=== PATIENT | male | born 1995 | race Caucasian/White ===

== ENCOUNTER 2022-10-25 23:28 | Emergency (ER) | payer MEDICAID ==
[~2022-10-25] VITALS: Ht 175.3 cm; Wt 74.3 kg
[2022-10-25 23:59] VITALS: BP 134/74
== END 2022-10-26 02:31 | disposition left against medical advice (07) ==
LOC: ER 23:28
DX: Z53.21 Procedure and treatment not carried out due to patient leaving prior to being seen by health care provider (principal)
CPT/HCPCS: 73110; 73562; 99281

== ENCOUNTER 2025-02-19 13:45 | Inpatient (IN) | payer OTHER, MEDICAID ==
[~2025-02-19] VITALS: Ht 165.1 cm; Wt 73.0 kg
[2025-02-19 13:48] VITALS: O2SAT 98
[2025-02-19] MEDS: LIDOCAINE HCL/EPINEPHRINE 1%-EPI 1:100,000 20ML VIAL INFIL ONE (14:38)
[2025-02-19] MEDS ORDERED: CEFAZOLIN SODIUM 2000MG/VIAL IJ ONE (15:00)
[2025-02-19 16:28] LABS: BASOPHILS % 0.6 % (0.0-2.0); EOSINOPHILS % 0.5 % (0.0-5.0); HEMATOCRIT. 42.5 % (42.0-52.0); HEMOGLOBIN. 14.6 g/dL (14.0-18.0); LYMPHOCYTES % 21.3 % (20.0-50.0); MEAN PLATELET VOLUME 7.4 fl (7.4-10.4); MONOCYTES % 6.6 % (2.0-8.0); NEUTROPHILS % 71.0 % (40.0-76.0); PLATELET 320 x1000/uL (130-400); RED BLOOD CELL COUNT 4.76 mill/uL (4.7-6.1); RED CELL DISTRIBUTION WIDTH 13.7 % (11.6-14.6)
[2025-02-19] MEDS: TETANUS, DIPHTHERIA, PERTUSSIS VAC/PF 0.5ML (>10YR OLD) IM ONE (16:34)
[2025-02-19 16:42] LABS: CREATININE 1.2 mg/dL (0.6-1.3); UREA NITROGEN BLOOD 12 mg/dL (9-23)
[2025-02-19 16:45] LABS: INR 1.0
[2025-02-19 20:00] VITALS: BP 112/82; PULSE 70; RESP 17; TEMP 36.8; O2SAT 98
[2025-02-19] MEDS ORDERED: NALOXONE HCL 0.4MG/ML VIAL IV PRN (22:00)
[2025-02-19] MEDS: MORPHINE SULFATE 2 MG/ML INJ (NOT FOR IM USE) IV PRN (22:09)
[2025-02-19] MEDS: DEXT 5%/0.45% NACL 1000ML 1,000 ML IV SCH (22:13)
[2025-02-19] MEDS: CEFAZOLIN 1000MG PREMIX 50 ML IV SCH (22:35)
[2025-02-19] MEDS: MORPHINE SULFATE 2 MG/ML INJ (NOT FOR IM USE) IV NR (23:05)
[2025-02-20] VITALS: BP 119/79; PULSE 83; RESP 20; TEMP 36.4; O2SAT 100
[2025-02-20 03:54] VITALS: BP 112/82; PULSE 70; RESP 17; TEMP 36.8072
[2025-02-20 04:00] VITALS: BP 119/74; PULSE 71; RESP 17; TEMP 36.9; O2SAT 99
[2025-02-20 08:00] VITALS: BP 131/92; PULSE 63; RESP 20; TEMP 36.4; O2SAT 100
[2025-02-20] MEDS ORDERED: POLYMYXIN B SULFATE 500000 UNITS/VIAL ONE ×3 (10:14→11:22)
[2025-02-20] MEDS ORDERED: LIDOCAINE HCL/EPINEPHRINE 1%-EPI 1:100,000 20ML VIAL ONE (10:14)
[2025-02-20] MEDS ORDERED: EPINEPHRINE 1:1000 1 MG/ML AMP ONE (10:14)
[2025-02-20] MEDS ORDERED: VANCOMYCIN HCL 1GM VIAL ONE (10:30)
[2025-02-20] MEDS ORDERED: ACETAMINOPHEN 1000MG/100ML 100 ML IV ONE (10:50)
[2025-02-20] MEDS ORDERED: FAMOTIDINE 20MG/2ML VIAL IV ONE (10:50)
[2025-02-20] MEDS ORDERED: PROPOFOL 200MG/20ML VIAL IV ONE (10:51)
[2025-02-20] MEDS ORDERED: FENTANYL CITRATE/PF 50MCG/ML 2ML VIAL ONE (10:52)
[2025-02-20] MEDS ORDERED: MIDAZOLAM HCL 2 MG/2 ML VIAL ONE (10:52)
[2025-02-20] MEDS ORDERED: HYDROMORPHONE HCL/PF 1MG/ML INJ ONE (11:25)
[2025-02-20] MEDS ORDERED: NEOSTIGMINE METHYLSULFATE 1MG/ML 10 ML VIAL ONE (11:26)
[2025-02-20] MEDS ORDERED: GLYCOPYRROLATE 0.2 MG/ML 2ML VIAL ONE ×2 (11:27)
[2025-02-20] MEDS ORDERED: LABETALOL 5MG/ML 4ML INJ IV PRN (12:00)
[2025-02-20] MEDS ORDERED: ONDANSETRON HCL 4MG/2ML INJ IV PRN (12:00)
[2025-02-20] MEDS ORDERED: HYDRALAZINE 20MG/ML VIAL IV PRN ×2 (12:00)
[2025-02-20] MEDS ORDERED: HYDROMORPHONE HCL/PF 1MG/ML INJ IV PRN (12:00)
[2025-02-20 16:00] VITALS: BP 103/70; PULSE 71; RESP 18; TEMP 36.6; O2SAT 98
[2025-02-20 20:00] VITALS: BP 113/71; PULSE 61; RESP 18; TEMP 36.4; O2SAT 100
[2025-02-20] MEDS: HYDROCODONE/ACETAMINOPHEN 5/325MG TABLET PO PRN (22:40)
[2025-02-21] VITALS: BP 100/58; PULSE 61; RESP 19; TEMP 36.3; O2SAT 99
[2025-02-21 01:10] LABS: *AMPHETAMINES SCREEN URINE PRESUMPTIVE POSITIVE (NEGATIVE); *BARBITURATES SCREEN URINE NEGATIVE (NEGATIVE); *BENZODIAZEPINES SCREEN URINE PRESUMPTIVE POSITIVE (NEGATIVE); *COCAINE SCREEN URINE NEGATIVE (NEGATIVE); CANNABINOID URINE SCREEN PRESUMPTIVE POSITIVE (NEGATIVE); ECSTASY MDMA SCREEN URINE CONF.TEST INDICATED (NEGATIVE); METHADONE URINE SCREEN NEGATIVE (NEGATIVE); OPIATES URINE SCREEN PRESUMPTIVE POSITIVE (NEGATIVE); PHENCYCLIDINE URINE SCREEN PRESUMTIVE POSITIVE (NEGATIVE)
[2025-02-21 04:00] VITALS: BP 113/78; PULSE 79; RESP 20; TEMP 35.8; O2SAT 100
[2025-02-21 08:00] VITALS: BP 141/97; PULSE 50; RESP 19; TEMP 36.4; O2SAT 100
[2025-02-21] MEDS ORDERED: KETOROLAC 30MG/ML VIAL IV PRN (09:15)
[2025-02-21 12:00] VITALS: BP 122/67; PULSE 58; RESP 20; TEMP 36.4; O2SAT 98
[2025-02-21 13:43] LABS: CLARITY URINE CLEAR (CLEAR); COLOR URINE YELLOW (YELLOW); GLUCOSE URINE NEGATIVE (NEGATIVE); KETONES URINE NEGATIVE (NEGATIVE); LEUKOCYTE ESTERASE URINE NEGATIVE (NEGATIVE); NITRITE URINE NEGATIVE (NEGATIVE); OCCULT BLOOD URINE NEGATIVE (NEGATIVE); PH URINE 6.5 (4.5-8.0); PROTEIN URINE NEGATIVE (NEGATIVE); SPECIFIC GRAVITY URINE 1.013 (1.005-1.030); UROBILINOGEN URINE 1.0 E.U./dL (0.2-1.0)
[2025-02-21] MEDS: OXYCODONE HCL/ACETAMINOPHEN 5/325MG TABLET PO PRN (14:46)
[2025-02-21 16:00] VITALS: BP 111/62; PULSE 80; RESP 20; TEMP 36.2; O2SAT 99
[2025-02-21 20:00] VITALS: BP 120/85; PULSE 66; RESP 18; TEMP 36.6; O2SAT 100
[2025-02-22 08:00] VITALS: BP 139/94; PULSE 60; RESP 20; TEMP 36.6; O2SAT 100
[2025-02-22] MEDS ORDERED: HYDR-4009 MT (10:48)
[2025-02-22] MEDS ORDERED: SULF1TAB48 MT (10:48)
[2025-02-22 12:00] VITALS: BP 119/73; PULSE 66; RESP 19; TEMP 36.3; O2SAT 100
[2025-02-22 13:36] VITALS: BP 119/73; PULSE 66; RESP 19; TEMP 97.4
[2025-02-22 16:00] VITALS: BP 98/63; PULSE 99; RESP 18; TEMP 36.4; O2SAT 98
== END 2025-02-22 16:10 | DRG 501 ==
LOC: ER 13:45 → ENRESERV 20:24 → 6EST 21:01
PROVIDERS: ADMIT Internal Medicine; ATTEND Internal Medicine
PROC: 0LQR0ZZ Repair Left Knee Tendon, Open Approach (ICD-10-PCS; principal; 2025-02-20)
DX: S86.822A Laceration of other muscle(s) and tendon(s) at lower leg level, left leg, initial encounter (principal); S82.192A Other fracture of upper end of left tibia, initial encounter for closed fracture; F19.10 Other psychoactive substance abuse, uncomplicated; F12.10 Cannabis abuse, uncomplicated; W26.0XXA Contact with knife, initial encounter; Z88.0 Allergy status to penicillin; Y93.89 Activity, other specified; Y92.89 Other specified places as the place of occurrence of the external cause; Y99.8 Other external cause status
CPT/HCPCS: 12004; 36415; 71045; 73560; 80048; 80305; 81003; 85025; 90471; 90715; 93005; 97116; 97162; 97166; 97530; 97535; 99285; J0690; J1171; J1308; J2004; J2250; J2270; J2704; J2710; J3010; J3373; J3490; J7030; J0131